=== PATIENT | female | born 1970 | race Caucasian/White ===

== ENCOUNTER → 2025-02-04 | Outpatient (CLI) | payer OTHER, SELFPAY ==
--- NOTE | 2025-02-04 08:00 | XR_ITS ---
EXAMINATION: Thyroid sonogram complete TECHNIQUE: Grayscale sonographic images thyroid lobes Date and time: February 04, 2025, 0748 hours, comparison 01/10/2024 INDICATIONS: Small left thyroid nodules on thyroid sonogram 01/10/2024 FINDINGS: Right thyroid 4.5 cm Upper pole cyst 3 x 3 mm, 4 x 3 mm Lower pole cyst 4 x 4 mm Left thyroid 4.4 cm Upper pole cyst 2 x 3 mm Upper pole nodule 5 x 5 mm Lower pole nodule 7 x 7 mm, 5 x 5 mm IMPRESSION: Small left thyroid nodules as above
[2025-02-04 08:12] LABS: Collection Type, Urine Clean Catch
--- NOTE | 2025-02-04 08:30 | XR_ITS ---
EXAMINATION: Ultrasound soft tissue neck TECHNIQUE: Grayscale sonographic images soft tissue neck Date and time: February 04, 2025, 0759 hours, comparison 01/10/2024 INDICATIONS: Cervical lymphadenopathy on ultrasound soft tissue neck 01/10/2024, including right soft tissue neck lymph nodes 14 x 11 mm and left soft tissue lymph node 15 x 8 mm FINDINGS: Right mid soft tissue neck lymph node 12 x 8 mm Left mid soft tissue lymph nodes 14 x 8 mm, 9 x 4 mm IMPRESSION: No significant change in cervical lymphadenopathy
[2025-02-04 08:35] LABS: Bilirubin,Urine Negative (Negative); Blood,Urine Negative (Negative); Clarity,Urine Clear (Clear/Hazy); Color,Urine Colorless (Lt Yel-Yel); Culture Indicated,Urine Not Indicated; Glucose, Urine Negative (Negative); Ketones,Urine Negative (Negative); Leukocyte Esterase,Urine Negative (Negative); Nitrite,Urine Negative (Negative); PH,Urine 6.5 (5.0-7.0); Protein,Urine Negative (Neg - Trace); RBC,Urine 4 /hpf (0-3); Specific Gravity,Urine 1.005 (1.001-1.035); Squamous Epithelial Cell,Urine < 1 /hpf (0-5); Urobilinogen,Urine Negative mg/dL (0.0-1.0); WBC,Urine 1 /hpf (0-5)
[2025-02-04 08:41] LABS: Basophils # (Auto) 0.1 Thou/mm3 (0.0-0.2); Basophils % (Auto) 1 % (0-2.5); Eosinophils # (Auto) 0.1 Thou/mm3 (0.0-0.5); Eosinophils % (Auto) 1 % (0-10); Hematocrit 42.2 % (36.0-46.0); Hemoglobin 14.4 g/dL (12.0-16.0); Immature Granulocytes Auto 0.03 Thou/mm3 (0.00-0.00); Lymphocytes # (Auto) 3.3 Thou/mm3 (1.0-4.8); Lymphocytes % (Auto) 36 % (10-50); Mean Corpuscular HGB Conc 34.1 g/dl (31.0-37.0); Mean Corpuscular Hemoglobin 33.4 pg (25.0-35.0); Mean Corpuscular Volume 98 fL (80-100); Monocytes # (Auto) 0.7 Thou/mm3 (0.0-0.8); Monocytes % (Auto) 8 % (0-12); Neutrophils # (Auto) 5.0 Thou/mm3 (1.8-7.7); Neutrophils % (Auto) 55 % (37-80); Nucleated Red Blood Cell # 0.00 Thou/mm3 (0.00-0.00); Nucleated Red Blood Cell % 0 /100 WBC (0); Platelet Count 291 Thou/mm3 (140-440); RDW Standard Deviation 46.0 fL (36.4-46.3); Red Blood Count 4.31 Miln/mm3 (4.00-5.20); White Blood Count 9.2 Thou/mm3 (3.6-11.0)
[2025-02-04 08:50] LABS: Alanine Aminotransferase 14 U/L (10-49); Albumin, Serum 4.9 gm/dL (3.5-5.0); Albumin/Globulin Ratio 2.5 (1.2-2.2); Alkaline Phosphatase 101 U/L (46-116); Anion Gap 7 (7-16); Aspartate Amino Transferase 16 U/L (0-34); BUN/Creatinine Ratio 13 Ratio (12-20); Bilirubin,Total 0.4 mg/dL (0.3-1.2); Blood Urea Nitrogen 12 mg/dL (9-23); Calcium 9.6 mg/dL (8.3-10.6); Calcium (Corrected) 9.6 mg/dL (8.5-10.1); Carbon Dioxide 27.6 mMol/L (20.0-31.0); Cardiac Risk Estimate 4.7 RATIO (3.7-5.6); Chloride 104 mMol/L (98-107); Cholesterol 233 mg/dL (132-200); Creatinine (Component) 0.9 mg/dL (0.6-1.3); Globulin 2.0 gm/dL (2.3-3.5); Glucose 81 mg/dL (74-106); HDL Cholesterol 50 mg/dL (40-60); LDL Cholesterol,Calculated 144 mg/dL (0-130); Osmolality,Calculated 276 (275-295); Potassium 3.8 mMol/L (3.4-5.1); Sodium 139 mMol/L (136-145); Thyroid Stimulating Hormone 1.30 uIU/mL (0.55-4.78); Total Protein 6.9 gm/dL (5.7-8.2); Triglycerides 196 mg/dL (30-150); eGFR > 60 See Note
[2025-02-04 08:52] LABS: Vitamin B12 1139 pg/mL (211-911); Vitamin D 25 Hydroxy Total 41.3 ng/mL (7.3-40.2)
--- NOTE | 2025-02-04 09:00 | XR_ITS ---
Examination: Screening digital mammography, bilateral Computer aided detection 3-D breast Tomosynthesis, bilateral Date and time of exam: February 04, 2025, 0822 hours, compared to mammograms dating to February 04, 2015 Indication: Screening Technique: Nonmagnified MLO, CC views of the breasts to been obtained, reconstructed from 3-D Tomosynthesis images. R2 computer aided detection program utilized for evaluation of suspicious masses and/or abnormal calcifications. 3-D Tomosynthesis images obtained. Findings: Scattered areas of fibroglandular density. Breast biopsy marker upper outer right breast 8 mm nodule indistinct margins outer lower right breast anterior depth Impression: BI-RADS Category 0: Incomplete: Need additional imaging evaluation Recommend follow-up spot tomographic views of 8 mm nodule indistinct margins outer lower right breast anterior depth as well as bilateral breast sonography to complete the work-up
== END | disposition home or self-care (01) ==
LOC: COPL 07:16
PROVIDERS: PCP Physician Assistant; Referring Provider Physician Assistant; Visit Provider Radiology Diagnostic Radiology
DX: Z12.31 Encounter for screening mammogram for malignant neoplasm of breast (principal); R92.8 Other abnormal and inconclusive findings on diagnostic imaging of breast; E04.1 Nontoxic single thyroid nodule; R59.0 Localized enlarged lymph nodes; Z00.00 Encounter for general adult medical examination without abnormal findings; I10 Essential (primary) hypertension; E78.5 Hyperlipidemia, unspecified; E55.9 Vitamin D deficiency, unspecified
CPT/HCPCS: 36415; 76536; 77063; 77067; 80053; 80061; 81001; 82306; 82607; 84443; 85025

== ENCOUNTER → 2025-02-09 | Outpatient (CLI) | payer OTHER, SELFPAY ==
--- NOTE | 2025-02-09 14:30 | XR_ITS ---
Examination: CT chest, without intravenous contrast. Sagittal and coronal 2-D reconstructions. Exam date and time: February 09, 2025, 1432 hours COMPARISON: January 18, 2023 INDICATIONS: Smoking history 40 years, encounter for screening for malignant neoplasm of the lung CTDI:vol (mGy) 13.2 DLP: (mGycm) 546 Technique: Multiple 3.0 mm axial sections of the chest to been obtained. Bone and lung density settings are obtained. Sagittal and coronal 2-D reconstructions have been obtained. Low dose protocols were performed. One or more of the following dose reduction techniques were used; automated exposure control, adjustment of the mA and/or KV according to patient size, use of iterative reconstruction technique. Findings: No thoracic aortic aneurysm dilatation Pulmonary artery segments are not enlarged. No paratracheal or tracheobronchial or bronchopulmonary adenopathy. Stable 3 mm pulmonary nodule right upper lobe No new pulmonary nodules. No pneumonia or pulmonary edema or pleural disease No focal liver or splenic lesions other than splenic calcifications No gallstones No pancreatic mass No adrenal mass No hydronephrosis IMPRESSION: Stable 3 mm pulmonary nodule right upper lobe, no new pulmonary nodules
== END | disposition home or self-care (01) ==
PROVIDERS: Referring Provider Physician Assistant; Visit Provider Physician Assistant
DX: R91.1 Solitary pulmonary nodule (principal)
CPT/HCPCS: 71250

== ENCOUNTER → 2025-03-06 | Outpatient (CLI) | payer OTHER, SELFPAY ==
--- NOTE | 2025-03-06 09:30 | XR_ITS ---
Examination: Breast ultrasound complete, bilateral Date and time of exam: March 06, 2025, 0932 hours INDICATIONS: Mammogram February 04, 2025 8 mm nodule indistinct margins outer lower right breast anterior depth Technique: Real-time grayscale ultrasonographic imaging bilateral breasts, including all 4 quadrants as well as nipple retroareolar and axillary regions. Findings: Sonographic images right breast No cystic or solid mass Sonographic images left breast 2:00 cyst 4 x 4 mm Retroareolar cyst 3 x 4 mm No solid nodules IMPRESSION: BI-RADS Category 2: Benign findings
--- NOTE | 2025-03-06 10:30 | XR_ITS ---
Examination: Diagnostic digital mammography, unilateral, right Computer aided detection 3-D breast Tomosynthesis, unilateral Date and time of exam: March 06, 2025, 0945 hours INDICATIONS: Mammogram February 04, 2025 8 mm nodule indistinct margins outer lower right breast anterior depth Technique: Nonmagnified MLO, CC views of the right breast have been obtained, reconstructed from 3-D Tomosynthesis images. R2 computer aided detection program utilized for evaluation of suspicious masses and/or abnormal calcifications. 3-D Tomosynthesis images obtained. Findings: Right scattered areas of fibroglandular density No suspicious masses are noted on the spot compression views Impression: BI-RADS category 2: Benign findings Return to yearly follow-up mammography
== END | disposition home or self-care (01) ==
LOC: CDIM 09:04
PROVIDERS: PCP Family Medicine; Referring Provider Physician Assistant; Visit Provider Physician Assistant
DX: R92.321 Mammographic fibroglandular density, right breast (principal)
CPT/HCPCS: 76641; 77061; 77065; G0279